=== PATIENT | male | born 1940 | race Caucasian/White ===

== ENCOUNTER 2017-04-12 12:10 | Day surgery (SDC) | payer MEDICARE, BC ==
[~2017-04-12 12:10] MED LIST: CARDURA 8MG TAB8 MG PO; GLUCOPHAGE500 MG/TAB PO; LIPITOR20 MG PO; NORCO 325 MG-51 TAB PO; PHILLIPS'311 MG PO; PLAVIX 75MG TAB75 MG PO; SURFAK 240240 MG/CAP PO; ZOCOR 20MG20 MG PO; ZYLOPRIM 300MG300 MG PO
[2017-04-12] MEDS ORDERED: TAMBOCOR 1100 MG/TAB PO (12:38)
[2017-04-12] MEDS ORDERED: ELIQUIS 5MG PO (12:39)
[2017-04-12] MEDS ORDERED: TAZTIA120 PO (12:39)
[2017-04-12 12:42] VITALS: BP 116/68; PULSE 69; TEMP 98
== END 2017-04-12 14:36 | disposition home or self-care (01) ==
LOC: EUO 12:10 → COL.CAR 12:15 → EUO 14:36
DX: I48.3 Typical atrial flutter (principal); Z95.818 Presence of other cardiac implants and grafts; Z53.9 Procedure and treatment not carried out, unspecified reason; Z80.9 Family history of malignant neoplasm, unspecified; R42 Dizziness and giddiness; E11.9 Type 2 diabetes mellitus without complications

== ENCOUNTER → 2017-05-25 | Outpatient (CLI) | payer MEDICARE, BC ==
[~2017-05-25] MED LIST changes: +ELIQUIS 5MG PO; +TAMBOCOR 1100 MG/TAB PO; +TAZTIA120 PO
== END ==
LOC: COL.RAD 09:19
DX: N21.0 Calculus in bladder (principal); Z90.5 Acquired absence of kidney; Z85.528 Personal history of other malignant neoplasm of kidney

== ENCOUNTER → 2017-09-30 | Outpatient (CLI) | payer MEDICARE, BC | LOC: COL.PUL 14:13 | DX: R06.02 Shortness of breath (principal) ==

== ENCOUNTER → 2018-06-07 | Outpatient (CLI) | payer MEDICARE, BC | LOC: COL.RAD 09:35 | DX: M19.011 Primary osteoarthritis, right shoulder (principal); M19.012 Primary osteoarthritis, left shoulder; M46.94 Unspecified inflammatory spondylopathy, thoracic region; Z85.520 Personal history of malignant carcinoid tumor of kidney | CPT/HCPCS: A9503 ==

== ENCOUNTER → 2020-12-20 | Outpatient (CLI) | payer MEDICARE, BC | LOC: COL.RAD 09:45 | DX: C61 Malignant neoplasm of prostate (principal) | CPT/HCPCS: A9503 ==

== ENCOUNTER 2021-11-11 07:26 | Day surgery (SDC) | payer MEDICARE, BC ==
[~2021-11-11] VITALS: Ht 172.7 cm; Wt 92.6 kg
[~2021-11-11 07:26] MED LIST changes: +GLUCOPHAGE1000 MG PO; -GLUCOPHAGE500 MG/TAB PO; +LIPITOR 40MG TA40 MG PO; -LIPITOR20 MG PO; -TAZTIA120 PO; +TAZTIA180 PO
[2021-11-11] MEDS ORDERED: JANUVIA25 MG PO (07:48)
[2021-11-11 07:58] VITALS: BP 171/80; PULSE 93; TEMP 96.3
[2021-11-11 09:20] VITALS: BP 130/68; PULSE 53; TEMP 96.6
--- NOTE | 2021-11-11 09:20 | NUR ---
Pt arrived on cart from procedure. Pt drowsy but oriented. Cart moved into room to promote comfort. Vitals obtained. Verbal bedside report obtained. Pt provided buttered toast, w/ hot coffee and cold water per request. Pt denies nausea. Pt verbalized how to use call [facility], which is within reach on side table. Will monitor per intervals.
[2021-11-11 09:35] VITALS: BP 143/82; PULSE 53
--- NOTE | 2021-11-11 09:35 | NUR ---
Vitals obtained. [facility] remains within reach. Pt has finished her toast, and requested a warm muffin.
[2021-11-11 10:05] VITALS: BP 129/69; PULSE 83; TEMP 97.6
--- NOTE | 2021-11-11 10:05 | NUR ---
Pt arrived from procedure drowsy but oriented. Pt was assisted with ambulating from cart to chair. Vitals obtained. Warm blanket provided. Verbal report obtained from Ryanne KAPADIA. Pt provided a warm muffin and hot coffee per request. [facility] is within reach on side table.
[2021-11-11 10:20] VITALS: BP 142/85; PULSE 87
--- NOTE | 2021-11-11 10:20 | NUR ---
Vitals obtained. is speaking with the pt.
[2021-11-11 10:35] VITALS: BP 143/72; PULSE 86
--- NOTE | 2021-11-11 10:35 | NUR ---
Vitals obtained. is still speaking with pt. Call [facility] remains within reach.
--- NOTE | 2021-11-11 10:50 | NUR ---
Pt ambulated to bathroom from bay without difficulty, then back to room.
--- NOTE | 2021-11-11 10:55 | NUR ---
DC instructions and educational material reviewed with pt by Naila KAPADIA. Questions answered. IV discontinued. Catheter tip. No redness or swelling noted. Pressure bandage applied. Pt then denied needing assistance changing into personal clothes.
--- NOTE | 2021-11-11 11:15 | NUR ---
Pt dismissed from endo via wheelchair by Naila KAPADIA to pt entrence. Pt has DC packet and personal belongings and was transferred into the care of his , who is present to drive.
== END 2021-11-11 11:19 | disposition home or self-care (01) ==
LOC: SDCO 07:26
DX: Z12.11 Encounter for screening for malignant neoplasm of colon (principal); D12.3 Benign neoplasm of transverse colon; D64.0 Hereditary sideroblastic anemia; K57.30 Diverticulosis of large intestine without perforation or abscess without bleeding; G47.33 Obstructive sleep apnea (adult) (pediatric); Z99.89 Dependence on other enabling machines and devices
CPT/HCPCS: J2704; J7120

== ENCOUNTER 2021-12-19 13:45 | Outpatient (CLI) | payer MEDICARE, BC ==
[~2021-12-19] VITALS: Ht 172.7 cm; Wt 88.6 kg
[~2021-12-19 13:45] MED LIST changes: +JANUVIA25 MG PO
[2021-12-19 14:18] VITALS: BP 118/47; PULSE 71; TEMP 98.6
== END 2021-12-19 15:30 | disposition home or self-care (01) ==
LOC: EUO 13:45
DX: M81.0 Age-related osteoporosis without current pathological fracture (principal)
CPT/HCPCS: J3489